=== PATIENT | male | born 1975 | race Caucasian/White ===

== ENCOUNTER 2017-03-08 16:45 | Inpatient (IN) ==
[2017-03-08 17:11] LABS: Bilirubin,Urine Small (Negative); Blood,Urine Negative (Negative); Clarity,Urine Clear (Clear); Color,Urine Dark Yellow (Yellow); Glucose,Urine (UA) >=1000 mg/dL (Normal); Ketones,Urine 40 mg/dL (Negative); Leukocyte Esterase,Urine Negative (Negative); Nitrite,Urine Negative (Negative); Protein,Urine 100 mg/dL (Neg-Trace); Specific Gravity,Urine > 1.030 (1.010-1.025); Urobilinogen,Urine Normal (Normal)
[2017-03-08 17:12] LABS: Bacteria,Urine None Seen per hpf (None-Few); Hyaline Casts,Urine None Seen per lpf (None-Few); RBC,Urine 0-3 per hpf (0-3); Squamous Epithelial Cell,Urine Many per lpf (None-Few)
[2017-03-08] MEDS ORDERED: *HR* HYDROmorphone (PF) 1 MG/ML SYRINGE IVP ONE (17:29)
[2017-03-08] MEDS ORDERED: Ondansetron 4 MG/2 ML VIAL IVP ONE (17:29)
[2017-03-08 17:46] LABS: Basophils # 0.1 K/mcL (0.0-0.2); Basophils % 0.4 %; Eosinophils # 0.1 K/mcL (0.0-0.6); Eosinophils % 0.5 %; Hematocrit 47.9 % (37.5-50.1); Hemoglobin 15.8 g/dL (12.9-16.9); Immature Granulocytes % 0.5 % (0-4); Lymphocytes # 1.5 K/mcL (0.6-4.6); Lymphocytes % 11.6 %; Mean Corpuscular Hemoglobin 30.7 pg (28.0-33.3); Mean Corpuscular Volume 93.2 fL (83.0-100.0); Mean Platelet Volume 9.3 fL (9.4-12.4); Monocytes % 7.5 %; Platelet Count 232 K/mcL (140-400); Red Blood Count 5.14 M/mcL (4.19-5.50); Red Cell Distribution Width 11.8 % (11.5-14.5); Segmented Neutrophils % 79.5 %
[2017-03-08] MEDS: 0.9 % Sodium Chloride 1,000 ML IVC SCH ×4 (17:47→22:05)
[2017-03-08 18:02] LABS: Alanine Aminotransferase 59 Units/L (0-55); Albumin 3.8 g/dL (3.5-5.0); Albumin/Globulin Ratio 0.7 (1.1-2.2); Alkaline Phosphatase 91 Units/L (38-126); Aspartate Amino Transferase 19 Units/L (5-34); BUN/Creatinine Ratio 14 (6-26); Bilirubin,Direct 0.7 mg/dL (0.0-0.5); Bilirubin,Indirect 0.8 mg/dL (0.0-1.2); Bilirubin,Total 1.5 mg/dL (0.2-1.2); Blood Urea Nitrogen 15 mg/dL (8-26); Carbon Dioxide 25 mEq/L (19-29); Chloride 99 mEq/L (98-109); Globulin 5.1 g/dL (2.4-3.5); Glucose 177 mg/dL (70-99); Lipase 19 Units/L (8-78); Osmolality,Calculated 285 (280-300); Sodium 135 mEq/L (136-145); Total Protein 8.9 g/dL (6.0-8.3); eGFR For African Americans > 60 (> 60); eGFR For Non-African Americans > 60 (> 60)
--- NOTE | 2017-03-08 18:17 | Emergency Department Note ---
Disposition Clinical Impression: Diverticulitis Qualifiers: Diverticulitis site: unspecified part of intestinal tract Diverticulitis bleeding: without bleeding Diverticulitis complication: with perforation Qualified Code(s): K57.80 - Diverticulitis of intestine, part unspecified, with perforation and abscess without bleeding Diabetes Qualifiers: Diabetes mellitus type: type 2 Diabetes mellitus complication status: without complication Diabetes mellitus director long term care insulin use: unspecified director long term care insulin use status Qualified Code(s): E11.9 - Type 2 diabetes mellitus without complications Disposition: Admitted As Inpatient Condition: Fair Time of Disposition: 19:16 Abdominal Pain HPI - General Chief Complaint: ED Abdominal Pain Stated Complaint: lower abdominal pain Time Seen by Provider: 03/08/17 17:26 Source: patient Nursing Notes Reviewed: Yes Vital Signs Reviewed: Yes - History of Present Illness HPI Narrative: Patient with a history of diabetes presents in the primary care office 4 days of pain which started at the right lower quadrant and sharp and severe and not generalized and somewhat improved today and the primary care physician was concerned about a acute abdomen the patient has had a fever with a temperature 100.5 degrees with a tympanic thermometer, no vomiting, no blood in the urine or stool. Last meal was at 11:00 this morning. Social history: No smoking, drinks between 2 and 6 beers per day Pain Scale: 6 - Related Data Home Medications Medication Instructions Recorded Confirmed Atorvastatin [Lipitor] 10 mg PO DAILY 03/08/17 03/08/17 Lisinopril [Zestril] 10 mg PO DAILY 03/08/17 03/08/17 Metformin HCl [Metformin HCl ER] 1,000 mg PO BID 03/08/17 03/08/17 Omeprazole [PriLOSEC] 40 mg PO DAILY 03/08/17 03/08/17 Allergies Allergy/AdvReac Type Severity Reaction Status Date / Time No Known Allergies Allergy Verified 03/08/17 16:46 Review of Systems: Constitutional: + fever Vision: No blurred vision ENT: No rhinorrhea Respiratory: No cough Allergic: No allergies : No blood in urine GI: No blood in stool Hematologic: No bruising Dermatologic: No skin rash Musculoskeletal: No pain in the extremities Neuro: No numbness of the extremities Abdominal Pain PMH - Past Medical History Medical history: Reports: diabetes, hyperlipidemia Male Surgical History: Reports: no surgical history Psychiatric history: Reports: no psych history - Social History Smoking status: Never smoker Alcohol use: Reports: occasionally Drug use: Reports: none Physical Exam CONSTITUTIONAL: Alert and oriented X3, well-nourished, well appearing, in no apparent distress HEAD: Normocephalic; atraumatic. EYES: PERRL, no scleral icterus. NOSE: The nose is normal in appearance without rhinorrhea RESP: Normal chest excursion with respiration; breath sounds clear and equal bilaterally; no wheezes, rhonchi, or rales CARD: Regular rhythm, without murmurs, rub or gallop ABD: Non-distended; does have moderate generalized pain but mostly pain in the right lower quadrant with some hardening, the upper abdomen is soft,without rigidity, rebound or guarding. Normal appearance SKIN: Normal for age and race; warm and dry; no apparent lesions - General Limitations: no limitations General appearance: alert, in no apparent distress Course Vital Signs Temperature 98.1 F 03/08/17 16:46 Pulse Rate 118 03/08/17 16:46 Respiratory Rate 16 03/08/17 16:46 Blood Pressure 135/97 03/08/17 16:46 O2 Sat by Pulse Oximetry 99 03/08/17 16:46 Temperature 98.1 F 03/08/17 16:46 Pulse Rate 118 03/08/17 16:46 Respiratory Rate 16 03/08/17 16:46 Blood Pressure 135/97 03/08/17 16:46 O2 Sat by Pulse Oximetry 99 03/08/17 16:46 Oxygen Delivery Oxygen Delivery Room Air Abdominal Pain - MDM Narrative Medical decision making narrative: The patient's CT is concerning for ruptured appendix and the patient is given IV fluids, IV Dilaudid and Zofran and we are discussion with Dr. Esteban at this time for admission and antibiotic selection. The patient's last meal was at 11:00 this morning and will be admitted for further management per surgery. 1816 I did review the patient's lab results. Zosyn was started. I did review the CT scan showing ruptured diverticulitis which is right sided and the patient will be admitted to the surgical service. Dr. Esteban has accepted. I did explain this to the patient. 1915 - Lab Data Result diagrams: 03/08/17 17:38 03/08/17 17:38 Lab Results 09/15/17 09/15/17 09/15/17 Range/Units 16:58 17:38 17:38 WBC 12.6 H (4.3-11.1) K/mcL RBC 5.14 (4.19-5.50) M/mcL Hgb 15.8 (12.9-16.9) g/dL Hct 47.9 (37.5-50.1) % MCV 93.2 (83.0-100.0) fL MCH 30.7 (28.0-33.3) pg MCHC 33.0 (31.6-35.5) g/dL RDW 11.8 (11.5-14.5) % Plt Count 232 (140-400) K/mcL MPV 9.3 L (9.4-12.4) fL Immature Gran % 0.5 (0-4) % Seg Neutrophils % 79.5 % Lymphocytes % 11.6 % Monocytes % 7.5 % Eosinophils % 0.5 % Basophils % 0.4 % Neutrophils # 10.0 H (1.6-8.9) K/mcL Lymphocytes # 1.5 (0.6-4.6) K/mcL Monocytes # 1.0 (0.0-1.3) K/mcL Eosinophils # 0.1 (0.0-0.6) K/mcL Basophils # 0.1 (0.0-0.2) K/mcL PT (9.4-12.1) Seconds INR APTT (26.0-36.0) Seconds Sodium 135 L (136-145) mEq/L Potassium 4.0 (3.5-4.5) mEq/L Chloride 99 (98-109) mEq/L Carbon Dioxide 25 (19-29) mEq/L BUN 15 (8-26) mg/dL Creatinine 1.05 (0.72-1.25) mg/dL Est GFR ( Amer) > 60 (> 60) Est GFR (Non-Af Amer) > 60 (> 60) BUN/Creatinine Ratio 14 (6-26) Glucose 177 H (70-99) mg/dL Calculated Osmolality 285 (280-300) Calcium 10.0 (8.6-10.8) mg/dL Total Bilirubin 1.5 H (0.2-1.2) mg/dL Direct Bilirubin 0.7 H (0.0-0.5) mg/dL Indirect Bilirubin 0.8 (0.0-1.2) mg/dL AST 19 (5-34) Units/L ALT 59 H (0-55) Units/L Alkaline Phosphatase 91 (38-126) Units/L Serum Total Protein 8.9 H (6.0-8.3) g/dL Albumin 3.8 (3.5-5.0) g/dL Globulin 5.1 H (2.4-3.5) g/dL Albumin/Globulin Ratio 0.7 L (1.1-2.2) Lipase 19 (8-78) Units/L Urine Color Dark Yellow (Yellow) Urine Clarity Clear (Clear) Urine pH 6.0 (5.0-8.0) pH Units Ur Specific [place] > 1.030 H (1.010-1.025) Urine Protein 100 H (Neg-Trace) mg/dL Urine Glucose (UA) >=1000 H (Normal) mg/dL Urine Ketones 40 H (Negative) mg/dL Urine Blood Negative (Negative) Urine Nitrite Negative (Negative) Urine Bilirubin Small H (Negative) Urine Urobilinogen Normal (Normal) mg/dL Ur Leukocyte Esterase Negative (Negative) Urine Microscopic RBC 0-3 (0-3) per hpf Urine Microscopic WBC 3-5 H (0-3) per hpf Ur Squamous Epith Cells Many H (None-Few) per lpf Urine Bacteria None Seen (None-Few) per hpf Hyaline Casts None Seen (None-Few) per lpf Ur Culture Indicated? NO (NO) 03/08/17 Range/Units 17:38 WBC (4.3-11.1) K/mcL RBC (4.19-5.50) M/mcL Hgb (12.9-16.9) g/dL Hct (37.5-50.1) % MCV (83.0-100.0) fL MCH (28.0-33.3) pg MCHC (31.6-35.5) g/dL RDW (11.5-14.5) % Plt Count (140-400) K/mcL MPV (9.4-12.4) fL Immature Gran % (0-4) % Seg Neutrophils % % Lymphocytes % % Monocytes % % Eosinophils % % Basophils % % Neutrophils # (1.6-8.9) K/mcL Lymphocytes # (0.6-4.6) K/mcL Monocytes # (0.0-1.3) K/mcL Eosinophils # (0.0-0.6) K/mcL Basophils # (0.0-0.2) K/mcL PT 13.7 H (9.4-12.1) Seconds INR 1.3 APTT 29.6 (26.0-36.0) Seconds Sodium (136-145) mEq/L Potassium (3.5-4.5) mEq/L Chloride (98-109) mEq/L Carbon Dioxide (19-29) mEq/L BUN (8-26) mg/dL Creatinine (0.72-1.25) mg/dL Est GFR ( Amer) (> 60) Est GFR (Non-Af Amer) (> 60) BUN/Creatinine Ratio (6-26) Glucose (70-99) mg/dL Calculated Osmolality (280-300) Calcium (8.6-10.8) mg/dL Total Bilirubin (0.2-1.2) mg/dL Direct Bilirubin (0.0-0.5) mg/dL Indirect Bilirubin (0.0-1.2) mg/dL AST (5-34) Units/L ALT (0-55) Units/L Alkaline Phosphatase (38-126) Units/L Serum Total Protein (6.0-8.3) g/dL Albumin (3.5-5.0) g/dL Globulin (2.4-3.5) g/dL Albumin/Globulin Ratio (1.1-2.2) Lipase (8-78) Units/L Urine Color (Yellow) Urine Clarity (Clear) Urine pH (5.0-8.0) pH Units Ur Specific [place] (1.010-1.025) Urine Protein (Neg-Trace) mg/dL Urine Glucose (UA) (Normal) mg/dL Urine Ketones (Negative) mg/dL Urine Blood (Negative) Urine Nitrite (Negative) Urine Bilirubin (Negative) Urine Urobilinogen (Normal) mg/dL Ur Leukocyte Esterase (Negative) Urine Microscopic RBC (0-3) per hpf Urine Microscopic WBC (0-3) per hpf Ur Squamous Epith Cells (None-Few) per lpf Urine Bacteria (None-Few) per hpf Hyaline Casts (None-Few) per lpf Ur Culture Indicated? (NO)
[2017-03-08 18:32] LABS: INR 1.3; Prothrombin Time 13.7 Seconds (9.4-12.1)
[2017-03-08] MEDS ORDERED: Piperacillin/Tazobactam 4.5 GM in D5% in Water (Mini-Bag+) 100 ML IVPB ONE (18:32)
[2017-03-08 18:35] LABS: Activated Partial Thrombo Time 29.6 Seconds (26.0-36.0)
[2017-03-08] MEDS ORDERED: *HR* HYDROmorphone (PF) 1 MG/ML SYRINGE IVP PRN (19:08)
[2017-03-08] MEDS ORDERED: D5% in Water 1,000 ML IVC PRN (19:14)
[2017-03-08] MEDS ORDERED: *HR* Dextrose 50 % in Water (Syg) 50 ML SYRINGE IVP PRN (19:14)
[2017-03-08] MEDS ORDERED: Dextrose Gel 15 GM PO PRN ×2 (19:14)
--- NOTE | 2017-03-08 21:23 | General Surg History&Physical ---
Date of Encounter: 03/09/17 Time of Encounter: 21:21 Assessment and Plan (1) Perforation of sigmoid colon due to diverticulitis Current Visit: Yes Status: Acute The assessment and plan as outlined above was discussed with the patient and/or family members who expressed understanding and agreement. All questions were answered. We will keep nothing by mouth tonight. Patient on IV fluids. On IV antibiotics. We will perform serial abdominal exams and continue to follow the CBC. (2) Phlegmon Current Visit: Yes Status: Acute The assessment and plan as outlined above was discussed with the patient and/or family members who expressed understanding and agreement. All questions were answered. See above. (3) Diabetes Current Visit: Yes Status: Acute The assessment and plan as outlined above was discussed with the patient and/or family members who expressed understanding and agreement. All questions were answered. Patient on sliding scale subcutaneous insulin. Qualifiers: Diabetes mellitus type: type 2 Diabetes mellitus complication status: without complication Diabetes mellitus correction insulin use: unspecified correction insulin use status Qualified Code(s): E11.9 - Type 2 diabetes mellitus without complications (4) DVT prophylaxis Current Visit: Yes Status: Acute The assessment and plan as outlined above was discussed with the patient and/or family members who expressed understanding and agreement. All questions were answered. On subcutaneous heparin 5000 units. History of Present Illness Chief complaint: Right lower abdominal pain HPI: Mr. Layton is a 42 year old male with a past medical history for diabetes mellitus states that 3 days ago he had the onset of right lower quadrant abdominal pain. The abdominal pain was sharp in nature and radiating in the pelvic region. The pain was intermittent with associated dry heaves and he states the following day he states that over the next couple of days he had intermittent episodes of elevated temperature up to 100.5. He had one episode of a "small amount of diarrhea" but normally has a bowel movement 1-2 times per day without rectal bleeding. Because of his persistent cramping and severe lower abdominal pain symptoms he presented to his primary care doctor's office ( Dr. Christian) who recommended that he go to the emergency room for further evaluation. Past Med Surg Social Fam HX - Past Medical History Medical history: diabetes, hyperlipidemia Psychiatric history: no psych history - Past Surgical History Surgical History: no surgical history - Social History Smoking Status: Never smoker Smokeless Tobacco Status: No Alcohol use: occasionally Drug use: none - Family History Sister Hx Family Endocrine Disorder: Yes (diabetes) Father Hx Family Cardiac Disorders: Yes ([place]) Medications and Allergies Atorvastatin [Lipitor] 10 mg PO DAILY 03/08/17 [History] Lisinopril [Zestril] 10 mg PO DAILY 03/08/17 [History] Metformin HCl [Metformin HCl ER] 1,000 mg PO BID 03/08/17 [History] Omeprazole [PriLOSEC] 40 mg PO DAILY 03/08/17 [History] 3 Allergy/AdvReac Type Severity Reaction Status Date / Time No Known Allergies Allergy Verified 03/08/17 16:46 Review of Systems All systems PM: reviewed and no additional remarkable complaints except as stated All systems PM: A 10-system review of systems was performed and is negative for pertinent findings except as documented above in the HPI. General Surgery Exam Initial Vital Signs Temp Pulse Resp BP Pulse Ox 98.1 F 118 16 135/97 99 03/08/17 16:46 03/08/17 16:46 03/08/17 16:46 03/08/17 16:46 03/08/17 16:46 - General physical appearance well nourished, no distress, moderate pain (Mild to moderate-improved from 1-2 hours ago) - Eyes PERRL, normal ocular movement - Neck no masses, trachea midline, no lymphadectomy - Respiratory normal expansion, normal respiratory effort, clear to auscultation - Cardiovascular Cardiovascular exam: Present: RRR, no murmurs/rubs/gallops - Abdomen Abdomen general surgery: Present: bowel sounds present, soft (Obese.) Abdominal Tenderness: Present: LUQ (Lower abdominal pain R>L. No masses. Voluntary guarding.), RLQ - Integumentary Integumentary general surgery: Present: warm and dry - Neurologic Present: CN 2-12 grossly intact, normal coordination, normal sensation - Musculoskeletal Present: other (No clubbing cyanosis or edema) - Psychiatric Psychiatric general surgery: Present: A&Ox3, oriented to person, oriented to place, oriented to time Results - Labs 03/09/17 05:07 03/09/17 05:07 Abnormal lab results WBC 12.6 K/mcL (4.3-11.1) H 03/08/17 17:38 MPV 9.3 fL (9.4-12.4) L 03/08/17 17:38 Neutrophils # 10.0 K/mcL (1.6-8.9) H 03/08/17 17:38 PT 13.7 Seconds (9.4-12.1) H 03/08/17 17:38 Sodium 135 mEq/L (136-145) L 03/08/17 17:38 Glucose 177 mg/dL (70-99) H 03/08/17 17:38 Total Bilirubin 1.5 mg/dL (0.2-1.2) H 03/08/17 17:38 Direct Bilirubin 0.7 mg/dL (0.0-0.5) H 03/08/17 17:38 ALT 59 Units/L (0-55) H 03/08/17 17:38 Serum Total Protein 8.9 g/dL (6.0-8.3) H 03/08/17 17:38 Globulin 5.1 g/dL (2.4-3.5) H 03/08/17 17:38 Albumin/Globulin Ratio 0.7 (1.1-2.2) L 03/08/17 17:38 Ur Specific [place] > 1.030 (1.010-1.025) H 03/08/17 16:58 Urine Protein 100 mg/dL (Neg-Trace) H 03/08/17 16:58 Urine Glucose (UA) >=1000 mg/dL (Normal) H 03/08/17 16:58 Urine Ketones 40 mg/dL (Negative) H 03/08/17 16:58 Urine Bilirubin Small (Negative) H 03/08/17 16:58 Urine Microscopic WBC 3-5 per hpf (0-3) H 03/08/17 16:58 Ur Squamous Epith Cells Many per lpf (None-Few) H 03/08/17 16:58 All other labs normal. - Imaging CT scan - abdomen: report reviewed, image reviewed (Right sided sigmoid diverticulum which appears to be close by to the appendix with apparent rupture and small amount of air outside of the bowel wall. Fat stranding consistent with a phlegmon.)
[2017-03-08 21:48] LABS: Basophils % 0.3 %; Eosinophils # 0.1 K/mcL (0.0-0.6); Eosinophils % 0.6 %; Hematocrit 40.9 % (37.5-50.1); Immature Granulocytes % 0.4 % (0-4); Lymphocytes # 1.4 K/mcL (0.6-4.6); Lymphocytes % 13.2 %; Mean Corpuscular HGB Conc 33.5 g/dL (31.6-35.5); Mean Corpuscular Hemoglobin 31.1 pg (28.0-33.3); Mean Platelet Volume 9.3 fL (9.4-12.4); Monocytes # 0.9 K/mcL (0.0-1.3); Neutrophils # 7.8 K/mcL (1.6-8.9); Platelet Count 185 K/mcL (140-400); Red Cell Distribution Width 11.8 % (11.5-14.5); Segmented Neutrophils % 76.5 %
[2017-03-08 21:49] LABS: Hemoglobin 13.7 g/dL (12.9-16.9)
[2017-03-08] MEDS: Piperacillin/Tazobactam 3.375 GM in D5% in Water (Mini-Bag+) 100 ML IVPB SCH (23:53)
[2017-03-08] MEDS: Insulin LISPRO 300 UNITS/3 ML VIAL SQ SCH (23:58)
[2017-03-09] MEDS: Ondansetron 4 MG/2 ML VIAL IVP SCH ×4 (04:32→16:51)
[2017-03-09 05:39] LABS: Basophils % 0.3 %; Eosinophils # 0.1 K/mcL (0.0-0.6); Eosinophils % 1.2 %; Hematocrit 41.1 % (37.5-50.1); Hemoglobin 13.9 g/dL (12.9-16.9); Immature Granulocytes % 0.2 % (0-4); Lymphocytes # 1.5 K/mcL (0.6-4.6); Lymphocytes % 16.9 %; Mean Corpuscular HGB Conc 33.8 g/dL (31.6-35.5); Mean Corpuscular Hemoglobin 31.3 pg (28.0-33.3); Mean Corpuscular Volume 92.6 fL (83.0-100.0); Mean Platelet Volume 9.4 fL (9.4-12.4); Monocytes # 0.8 K/mcL (0.0-1.3); Monocytes % 8.8 %; Neutrophils # 6.5 K/mcL (1.6-8.9); Platelet Count 187 K/mcL (140-400); Red Blood Count 4.44 M/mcL (4.19-5.50); Red Cell Distribution Width 11.8 % (11.5-14.5); Segmented Neutrophils % 72.6 %
[2017-03-09 05:59] LABS: BUN/Creatinine Ratio 16 (6-26); Blood Urea Nitrogen 13 mg/dL (8-26); Calcium 8.7 mg/dL (8.6-10.8); Carbon Dioxide 22 mEq/L (19-29); Chloride 103 mEq/L (98-109); Glucose 128 mg/dL (70-99); Osmolality,Calculated 280 (280-300); Potassium 3.9 mEq/L (3.5-4.5); Sodium 134 mEq/L (136-145); eGFR For African Americans > 60 (> 60); eGFR For Non-African Americans > 60 (> 60)
[2017-03-09] MEDS: 0.9 % Sodium Chloride 1,000 ML IVC SCH ×3 (06:14→09:41)
[2017-03-09] MEDS: *HR* Heparin 5,000 UNIT/ML VIAL SQ SCH ×2 (06:18→16:51)
[2017-03-09] MEDS: Pantoprazole 40 MG VIAL IVP SCH (09:40)
[2017-03-09] MEDS: Piperacillin/Tazobactam 3.375 GM in D5% in Water (Mini-Bag+) 100 ML IVPB SCH ×2 (09:44→16:49)
[2017-03-09] MEDS: Insulin LISPRO 300 UNITS/3 ML VIAL SQ SCH ×4 (09:49→21:24)
--- NOTE | 2017-03-09 11:34 | General Surgery Progress Note ---
Date of Encounter: 03/09/17 Time of Encounter: 11:32 - Assessment and Plan (1) Perforation of sigmoid colon due to diverticulitis Current Visit: Yes Status: Acute We will go ahead and advance his diet to full liquids. Continue with IV antibiotics. Will Hep-Lock IV fluids at this time. (2) Phlegmon Current Visit: Yes Status: Acute Patient continuing to improve. We will continue with IV antibiotics at this time. (3) Diabetes Current Visit: Yes Status: Acute On moderate sliding scale insulin. 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 No nausea or vomiting. Positive bowel movement 2.) Objective - General physical appearance well nourished, no distress - Abdomen Abdomen: Present: soft, tender (minimal RLQ pain to deep palpation) - Labs 03/09/17 05:07 03/09/17 05:07 Consult Discharge Plan - Plan Referrals: Brody Christian MD [Primary Care Provider] -
[2017-03-10] MEDS: Ondansetron 4 MG/2 ML VIAL IVP SCH ×2 (00:10→06:07)
[2017-03-10] MEDS: Piperacillin/Tazobactam 3.375 GM in D5% in Water (Mini-Bag+) 100 ML IVPB SCH ×2 (00:10→09:39)
[2017-03-10] MEDS: *HR* Heparin 5,000 UNIT/ML VIAL SQ SCH (06:06)
[2017-03-10 07:44] VITALS: BP 126/85
--- NOTE | 2017-03-10 08:41 | Discharge Summary ---
Date of Encounter: 03/10/17 Time of Encounter: 08:38 - Discharge Diagnosis (1) Perforation of sigmoid colon due to diverticulitis Priority: Primary Status: Acute (2) Phlegmon Priority: Primary Status: Acute (3) Diabetes Priority: Secondary Status: Acute Qualifiers: Diabetes mellitus type: type 2 Diabetes mellitus complication status: without complication Diabetes mellitus extermination inspector insulin use: unspecified extermination inspector insulin use status Qualified Code(s): E11.9 - Type 2 diabetes mellitus without complications (4) DVT prophylaxis Priority: Secondary Status: Acute - Discharge Medications Prescriptions: Amoxicillin/Clavulanate [Augmentin] 875 mg PO BIDWM #10 tablet Docusate [Colace] 100 mg PO BID #30 capsule Home Medications: Atorvastatin [Lipitor] 10 mg PO DAILY 03/08/17 [History] Lisinopril [Zestril] 10 mg PO DAILY 03/08/17 [History] Metformin HCl [Metformin HCl ER] 1,000 mg PO BID 03/08/17 [History] Omeprazole [PriLOSEC] 40 mg PO DAILY 03/08/17 [History] Amoxicillin/Clavulanate [Augmentin] 875 mg PO BIDWM #10 tablet 03/10/17 [Rx] Docusate [Colace] 100 mg PO BID #30 capsule 03/10/17 [Rx] Allergies/Adverse Reactions: 3 Allergy/AdvReac Type Severity Reaction Status Date / Time No Known Allergies Allergy Verified 03/08/17 16:46 General Surgery Exam Initial Vital Signs Temp Pulse Resp BP Pulse Ox 98.1 F 118 16 135/97 99 03/08/17 16:46 03/08/17 16:46 03/08/17 16:46 03/08/17 16:46 03/08/17 16:46 - Respiratory normal expansion, normal respiratory effort - Abdomen Abdomen general surgery: Present: bowel sounds present, soft, tender (Minimal RLQ pain to palpation.) Date of admission: 03/09/17 09:11 Primary care physician: Brody Christian MD Discharging clinician: Edgar Esteban Anticipated date of discharge: 03/10/17 - Patient Status Disposition: Home, Self-Care Condition: Good Overall status at discharge: patient is progressing back to baseline - Discharge Instructions Instructions: Diverticulitis (DC), Diabetes Mellitus Type 2 in Adults (DC) Follow Up With: Brody Christian MD [Primary Care Provider] - - Hospital Course Hospital course: Mr. Layton is a 42 year old male Who presented to [facility] with signs consistent with a phlegmon secondary to perforated sigmoid diverticulitis. He was treated conservatively with IV abx and had decreased abdominal pain without any need for narcotic pain medications. Due to his overall improvement he was discharged home on 03/10/17 with instructions to follow up in two weeks. Time spent discussing smoking cessation with patient: 3 to 10 minutes - Time Spent with Patient Total time spent providing and/or coordinating discharge services: Less than 30 minutes Labs on day of discharge: Labs from last 24 hours 03/10/17 03/09/17 03/09/17 07:36 21:09 16:11 POC Glucose 104 H 121 H 138 H
[2017-03-10] MEDS: Pantoprazole 40 MG VIAL IVP SCH (09:38)
[2017-03-10] MEDS: Insulin LISPRO 300 UNITS/3 ML VIAL SQ SCH (09:39)
== END 2017-03-10 11:46 | disposition home or self-care (01) | DRG 392 ==
LOC: EMEROO 16:45 → 3ANU 16:45
PROVIDERS: ADMIT Surgery; ATTEND Surgery